=== PATIENT | male | born 1960 | race African-American/Black ===

== ENCOUNTER 2017-01-01 09:24 | Emergency (ER) | payer OTHER ==
[~2017-01-01] VITALS: Ht 170.2 cm; Wt 70.0 kg
[2017-01-01 09:27] VITALS: BP 207/124; PULSE 82; RESP 20; TEMP 98.5; O2SAT 100
--- NOTE | 2017-01-01 09:56 | PD ---
HPI Chief Complaint: Pain: Acute or Chronic Time Seen by Provider: 09:54 Travel History International Travel<30 days: No Contact w/Intl Traveler<30days: No Traveled to known affect area: No History of Present Illness HPI 56-year-old male presents to the emergency Department with complaint of left lateral and and mid back rib cage pain after falling onto a picnic table on Sunday to the specified area. He was pulling a lawnmower cord and the cord snapped and he lost his balance falling onto the picnic table. Denies hemoptysis, hematemesis, abdominal pain, chest pain, shortness of breath. Reports pain is worse with coughing, sneezing, laughing, moving, palpation. Has been taking Aleve for symptom management. Symptoms are moderate in severity. Has no other medical complaints. No known allergies. No other modifying factors or associated signs and symptoms. PFSH Social History Tobacco Use: No Allergies-Medications (Allergen,Severity, Reaction): Coded Allergies: No Known Allergies (Unverified , 01/01/17) Reported Meds & Prescriptions Reported Meds & Active Scripts Active Lortab (Hydrocodone-Acetaminophen) 5-325 Mg Tab 1 Tab PO Q4H PRN 5 Days Robaxin (Methocarbamol) 500 Mg Tab 500 Mg PO QID PRN Ibuprofen 800 Mg Tab 800 Mg PO Q6HR PRN Review of Systems Except as stated in HPI: all other systems reviewed are Neg Physical Exam Narrative GENERAL: Well-nourished, well-developed black male patient, in no acute distress SKIN: Warm and dry. HEAD: Atraumatic. Normocephalic. EYES: Pupils equal and round. No scleral icterus. No injection or drainage. ENT: Mucosa pink and moist. NECK: Trachea midline. CHEST: Left lateral rib cage and mid back with reproducible tenderness on palpation; no crepitance or deformity. No retractions or use of accessory muscles. Area is without erythema, edema, ecchymosis. CARDIOVASCULAR: Regular rate and rhythm. No murmur appreciated. RESPIRATORY: No accessory muscle use. Clear to auscultation. Breath sounds equal bilaterally. No retractions or tachypnea. GASTROINTESTINAL: Abdomen soft, non-tender, nondistended. Hepatic and splenic margins not palpable. Bowel sounds are active 4 quadrants. MUSCULOSKELETAL: No obvious deformities. No clubbing. No cyanosis. No edema. NEUROLOGICAL: Awake and alert. Oriented 3. No obvious cranial nerve deficits. Motor grossly within normal limits. Normal speech. Moves all extremities. 5/5 strength to all extremities. PSYCHIATRIC: Appropriate mood and affect; insight and judgment normal. Data Data Last Documented VS Vital Signs Date Time Temp Pulse Resp B/P (MAP) Pulse Ox O2 Delivery O2 Flow Rate FiO2 01/01/17 11:05 200/126 (150) 01/01/17 09:27 98.5 82 20 100 Room Air Orders Orders Acetamin-Hydrocod 325-5 Mg ([place] 5-325 (01/01/17 10:00) Ribs, Uni (W/Exp Cxr-Min 3vw) (01/01/17 09:54) Acetamin-Hydrocod 325-5 Mg ([place] 5-325 (01/01/17 10:02) Resp Incentive Spirometry (01/01/17 ) [facility] Medical Decision Making Medical Screen Exam Complete: Yes Emergency Medical Condition: Yes Medical Record Reviewed: Yes Differential Diagnosis rib Contusion, rib fracture, fall Narrative Course 56-year-old male with left lateral rib cage injury. Patient is in no acute distress. Oxygen saturation is 100% on room air. No retractions or tachypnea. Patient's blood pressure is elevated in the ER. He denies history of hypertension and does not take medications for high blood pressure. He is asymptomatic. I'll administer pain medication and have blood pressure rechecked. Lortab administered in the ER. Left rib with expiratory chest x-ray ordered. 1101: Left rib with expiratory chest x-ray concludes: Last 24 hours Impressions Ribs X-Ray 01/01/17 0954 Signed Impressions: Service Date/Time: Sunday, January 01, 2017 10:20 - CONCLUSION: 1. Possible acute rib fractures of the left fifth and sixth ribs. 2. Trace left pleural fluid. There is no pneumothorax. Med Schwartz MD Incentive spirometer ordered and patient given instructions for home. I spoke with Dr. Malcolm, my attending physician, and she agrees with my plan of care Patient's blood pressure rechecked and is still elevated. Patient says he checks his blood pressure at [employer] [facility] and is always normal. He says he gets really nervous with Drs. and his blood pressure is normally not this high. He continues to be asymptomatic. Since the patient's reports normal blood pressures outpatient, I will have the patient follow up outpatient in regards to his high blood pressure. Patient provided follow-up sheet for [facility]. Instructed patient to call and make an appointment today or tomorrow and follow-up by the end of the week. Instructed patient to continue to check his blood pressures and write them down and take him to his follow-up appointment. Discussed signs and symptoms of high blood pressure and reasons to return to the emergency department. Patient verbalizes understanding and agreement with plan of care. Lortab, ibuprofen, Robaxin prescribed for home. Instructed patient to follow up with primary care provider. Patient verbalizes understanding and agreement with treatment plan. Patient is medically cleared and stable for discharge. Discussed reasons to return to the emergency department. Patient agrees with treatment plan. The patients vital signs are stable and the patient is stable for outpatient follow-up and treatment. Patient discharged home, stable and in no acute distress. Diagnosis Primary Impression: Contusion of rib on left side Qualified Codes: S20.212A - Contusion of left front wall of thorax, initial encounter Referrals: [facility] Primary Care Physician Patient Instructions: General Instructions, Rib Contusion (ED), Rib Fracture ( ED) Departure Forms: Tests/Procedures, Work Release Enter return to work date: Jan 08, 2017 Additional Instructions: Ibuprofen or Tylenol as directed and as needed to reduce pain Incentive spirometer every 2 hours while awake for deep breathing exercises Robaxin as prescribed and as needed to reduce muscle spasms Heating pad and/or ice to affected area to reduce pain Avoid aggravating activities; increase activity as tolerated Gentle stretching to the affected muscle may be helpful Follow-up with a primary care provider Follow-up with primary care provider in regards to high blood pressure; return to the emergency department with onset of symptoms as discussed Return to the emergency department immediately with worsening of symptoms Med/Other Pt SpecificInfo: Prescription(s) given Scripts Hydrocodone-Acetaminophen (Lortab) 5-325 Mg Tab 1 TAB PO Q4H Y for PAIN for 5 Days, #30 TAB 0 Refills Prov: Nan Vanessa METHODS ANALYST DATA PROCESSING 01/01/17 Methocarbamol (Robaxin) 500 Mg Tab 500 MG PO QID Y for MUSCLE SPASM, #30 TAB 0 Refills Prov: Nan VanessaP 01/01/17 Ibuprofen (Ibuprofen) 800 Mg Tab 800 MG PO Q6HR Y for PAIN, #30 TAB 0 Refills Prov: Nan Vanessa 01/01/17 Disposition: 01 DISCHARGE HOME Condition: Stable Nan Vanessa Jan 01, 2017 09:56
[2017-01-01] MEDS ORDERED: ACETAMINOPHEN/HYDROcodone 325 MG/5 MG TAB PO ONE (10:00)
[2017-01-01] MEDS ORDERED: ACETAMINOPHEN/HYDROcodone 325 MG/5 MG TAB ONE (10:02)
[2017-01-01] MEDS ORDERED: IBUP800T23 PO (10:13)
[2017-01-01] MEDS ORDERED: ROBA500T PO (10:13)
--- NOTE | 2017-01-01 10:40 | RADRPT ---
EXAM DATE/TIME: 01/01/2017 10:20 [place] COMPARISON: No previous studies available for comparison. INDICATIONS : Fell on picnic table Sunday, pain left posterior lower ribs. MEDICAL HISTORY : None. SURGICAL HISTORY : None. ENCOUNTER: Initial ACUITY: 3 days PAIN SCORE: 8/10 LOCATION: Left ribs. FINDINGS: 5 views of the chest and left ribs demonstrates abnormality of the left lateral fifth and sixth ribs could represent acute or chronic fracture. No other definite acute rib fracture is identified. There is slight blunting of left costophrenic angle. No pneumothorax is present. CONCLUSION: 1. Possible acute rib fractures of the left fifth and sixth ribs. 2. Trace left pleural fluid. There is no pneumothorax. Med Schwartz MD on January 01, 2017 at 10:36 Board Certified Radiologist. This report was verified electronically.
[2017-01-01 11:05] VITALS: BP 200/126
[2017-01-01] MEDS ORDERED: HYDR-3533 PO (11:14)
== END 2017-01-01 11:28 | disposition home or self-care (01) ==
LOC: NEPK 09:24
DX: S20.212A Contusion of left front wall of thorax, initial encounter (principal); W01.198A Fall on same level from slipping, tripping and stumbling with subsequent striking against other object, initial encounter; Y93.89 Activity, other specified
CPT/HCPCS: 71101; 94150; 99284

== ENCOUNTER 2017-01-08 13:56 | Emergency (ER) | payer OTHER ==
[~2017-01-08] VITALS: Ht 170.2 cm; Wt 69.5 kg
[~2017-01-08 13:56] MED LIST: HYDR-3533 PO; IBUP800T23 PO; ROBA500T PO
[2017-01-08 13:57] VITALS: BP 215/104; PULSE 80; RESP 14; TEMP 98; O2SAT 100
--- NOTE | 2017-01-08 14:03 | PD ---
Physical Exam Date Seen by Provider: Jan 08, 2017 Time Seen by Provider: 14:01 Narrative 56 yo male here for medical clearance. Basically here for paperwork to be filled so his insurance can pay while he is out of work secondary to injury. He was seen here. His insurance is making him come here to get cleared. No other medical issues. Vitals stable at triage except for hypertension. Awaiting bed placement. Data Data Last Documented VS Vital Signs Date Time Temp Pulse Resp B/P (MAP) Pulse Ox O2 Delivery O2 Flow Rate FiO2 01/08/17 13:57 98.0 80 14 215/104 (141) 100 MDM Medical Record Reviewed: Yes Supervised Visit with AMY: No River Stroud Jan 08, 2017 14:03
[2017-01-08 14:07] VITALS: BP 184/114
--- NOTE | 2017-01-08 14:26 | PD ---
HPI Chief Complaint: Medical Clearance Time Seen by Provider: 14:20 Travel History International Travel<30 days: No Contact w/Intl Traveler<30days: No Traveled to known affect area: No History of Present Illness HPI 56-year-old Afro-[place] male presents the emergency department status post fall and fracture of the left sixth ribs on 12/30/2016. Patient is here for paperwork needed to return to work, and to have reimbursement for the days missed out of work. States he is 80% better, and able to take deep breaths and do most things without pain. He has no other acute complaints. He has no known drug allergies. [facility] Social History Alcohol Use: No Tobacco Use: No Allergies-Medications (Allergen,Severity, Reaction): Coded Allergies: No Known Allergies (Unverified , 01/08/17) Reported Meds & Prescriptions Reported Meds & Active Scripts Active Lortab (Hydrocodone-Acetaminophen) 5-325 Mg Tab 1 Tab PO Q4H PRN 5 Days Robaxin (Methocarbamol) 500 Mg Tab 500 Mg PO QID PRN Ibuprofen 800 Mg Tab 800 Mg PO Q6HR PRN Review of Systems Except as stated in HPI: all other systems reviewed are Neg General / Constitutional: No: Fever Eyes: No: Visual changes HENT: No: Headaches Cardiovascular: No: Chest Pain or Discomfort Respiratory: No: Shortness of Breath Gastrointestinal: No: Abdominal Pain Genitourinary: No: Dysuria Musculoskeletal: No: Pain Skin: No Rash Neurologic: No: Weakness Psychiatric: No: Depression Endocrine: No: Polydipsia Hematologic/Lymphatic: No: Easy Bruising Physical Exam Narrative GENERAL: Patient appears no acute distress. SKIN: Warm and dry. Normal color. Normal turgor. No bruising. HEAD: Atraumatic. Normocephalic. EYES: Pupils equal and round. No scleral icterus. No injection or drainage. ENT: No nasal bleeding or discharge. Mucous membranes pink and moist. NECK: Trachea midline. No JVD. CARDIOVASCULAR: Regular rate and rhythm. RESPIRATORY: No accessory muscle use. Clear to auscultation. Breath sounds equal bilaterally. Patient still has some mild discomfort along the left lateral fifth and sixth ribs without obvious deformity or subcutaneous emphysema. GASTROINTESTINAL: Abdomen soft, non-tender, nondistended. Hepatic and splenic margins not palpable. MUSCULOSKELETAL: Extremities without clubbing, cyanosis, or edema. No obvious deformities. NEUROLOGICAL: Awake and alert. No obvious cranial nerve deficits. Motor grossly within normal limits. Five out of 5 muscle strength in the arms and legs. Normal speech. PSYCHIATRIC: Appropriate mood and affect; insight and judgment normal. Data Data Last Documented VS Vital Signs Date Time Temp Pulse Resp B/P (MAP) Pulse Ox O2 Delivery O2 Flow Rate FiO2 01/08/17 14:07 184/114 (137) 01/08/17 13:57 98.0 80 14 100 MDM Medical Decision Making Medical Screen Exam Complete: Yes Emergency Medical Condition: Yes Medical Record Reviewed: Yes Differential Diagnosis Fall at home. Left lateral rib fracture. Medical clearance to return to work. Narrative Course Patient is felt to be medically stable for return to work without restriction. Paperwork is filled out that the patient brought in for his disability insurance. Patient follow with his primary care physician or return to emergency department as needed. Diagnosis Primary Impression: Return to work evaluation Additional Impression: Multiple fractures of ribs of left side with routine healing Referrals: Primary Care Physician Patient Instructions: General Instructions, Rib Fracture (ED) Departure Forms: Work Release Enter return to work date: Jan 09, 2017 Additional Instructions: Patient is felt to be medically stable for return to work without restriction. Paperwork is filled out that the patient brought in for his disability insurance. Patient follow with his primary care physician or return to emergency department as needed. Med/Other Pt SpecificInfo: Prescription(s) given Disposition: 01 DISCHARGE HOME Condition: Stable Gucci Lamas Jan 08, 2017 14:26
== END 2017-01-08 14:45 | disposition home or self-care (01) ==
LOC: NEPK 13:56
DX: S22.42XD Multiple fractures of ribs, left side, subsequent encounter for fracture with routine healing (principal); W19.XXXD Unspecified fall, subsequent encounter
CPT/HCPCS: 99281